=== PATIENT | female | born 1995 | race Caucasian/White ===

== ENCOUNTER → 2024-06-04 09:57 | Outpatient (REF) | payer OTHER, SELFPAY | LOC: RAD 09:57 | PROVIDERS: ATTENDING PHYSICIAN Nurse Practitioner; FAMILY PHYSICIAN Family Medicine | DX: N39.0 Urinary tract infection, site not specified (principal) | CPT/HCPCS: 76770; 76856 ==

== ENCOUNTER 2024-06-25 09:04 | Outpatient (RCR) | payer OTHER, SELFPAY | END 2024-06-25 23:59 | disposition home or self-care (01) | LOC: RPT 09:04 | PROVIDERS: ATTENDING PHYSICIAN Nurse Practitioner; FAMILY PHYSICIAN Family Medicine | DX: N30.10 Interstitial cystitis (chronic) without hematuria (principal); R35.0 Frequency of micturition; M62.89 Other specified disorders of muscle; N39.3 Stress incontinence (female) (male); R10.2 Pelvic and perineal pain; Z73.6 Limitation of activities due to disability | CPT/HCPCS: 97163; 97530 ==

== ENCOUNTER 2024-08-12 18:55 | Outpatient (RCR) | payer OTHER, SELFPAY | END 2024-08-12 23:59 | disposition home or self-care (01) | LOC: RPT 18:55 | PROVIDERS: ATTENDING PHYSICIAN Nurse Practitioner; FAMILY PHYSICIAN Family Medicine | DX: N30.10 Interstitial cystitis (chronic) without hematuria (principal); R35.0 Frequency of micturition; M62.89 Other specified disorders of muscle; N39.3 Stress incontinence (female) (male); R10.2 Pelvic and perineal pain; Z73.6 Limitation of activities due to disability | CPT/HCPCS: 97112; 97140; 97530 ==

== ENCOUNTER 2024-09-09 17:54 | Outpatient (RCR) | payer OTHER, SELFPAY | END 2024-09-09 23:59 | disposition home or self-care (01) | LOC: RPT 17:54 | PROVIDERS: ATTENDING PHYSICIAN Nurse Practitioner; FAMILY PHYSICIAN Family Medicine | DX: N30.10 Interstitial cystitis (chronic) without hematuria (principal); R35.0 Frequency of micturition; M62.89 Other specified disorders of muscle; N39.3 Stress incontinence (female) (male); R10.2 Pelvic and perineal pain; Z73.6 Limitation of activities due to disability | CPT/HCPCS: 97014; 97112; 97140; 97530 ==

== ENCOUNTER 2024-11-18 13:58 | Outpatient (RCR) | payer OTHER, SELFPAY | END 2024-11-18 23:59 | disposition home or self-care (01) | LOC: RPT 13:58 | PROVIDERS: ATTENDING PHYSICIAN Nurse Practitioner; FAMILY PHYSICIAN Family Medicine | DX: N30.10 Interstitial cystitis (chronic) without hematuria (principal); Z73.6 Limitation of activities due to disability; R35.0 Frequency of micturition; M62.89 Other specified disorders of muscle; N39.3 Stress incontinence (female) (male); R10.2 Pelvic and perineal pain | CPT/HCPCS: 97140; 97530 ==

== ENCOUNTER 2024-12-04 10:50 | Outpatient (RCR) | payer OTHER, SELFPAY | END 2024-12-04 23:59 | disposition home or self-care (01) | LOC: RPT 10:50 | PROVIDERS: ATTENDING PHYSICIAN Nurse Practitioner; FAMILY PHYSICIAN Family Medicine | DX: N30.10 Interstitial cystitis (chronic) without hematuria (principal); Z73.6 Limitation of activities due to disability; R35.0 Frequency of micturition; M62.89 Other specified disorders of muscle; N39.3 Stress incontinence (female) (male); R10.2 Pelvic and perineal pain | CPT/HCPCS: 97140; 97530 ==

== ENCOUNTER 2024-12-29 09:10 | Outpatient (RCR) | payer OTHER, SELFPAY | END 2024-12-29 23:59 | disposition home or self-care (01) | LOC: RPT 09:10 | PROVIDERS: ATTENDING PHYSICIAN Nurse Practitioner; FAMILY PHYSICIAN Family Medicine | DX: N30.10 Interstitial cystitis (chronic) without hematuria (principal); Z73.6 Limitation of activities due to disability; R35.0 Frequency of micturition; M62.89 Other specified disorders of muscle; N39.3 Stress incontinence (female) (male); R10.2 Pelvic and perineal pain | CPT/HCPCS: 97014; 97112; 97140; 97530 ==

== ENCOUNTER 2025-01-14 17:12 | Emergency (ER) | payer OTHER, SELFPAY ==
[2025-01-14 17:22] VITALS: BP 122/80
[2025-01-14 18:48] LABS: % Basophils 0.2 % (0-2); % Eosinophils 0.8 % (0-6); % Immature Granulocytes 0.1 % (0-0.5); % Lymphocytes 34.8 % (20.5-51.1); % Monocytes 5.6 % (1.7-9.3); % Neutrophils 58.5 % (42.2-75.2); Absolute Eosinophils 0.1 10^3/uL (0-0.7); Absolute Lymphocytes 3.1 10^3/uL (1.2-3.4); Absolute Monocytes 0.5 10^3/uL (0.1-0.6); Absolute Neutrophils 5.2 10^3/uL (1.4-6.5); Hematocrit 37.7 % (37.0-47.0); Hemoglobin 12.8 g/dL (12.0-16.0); Mean Corpuscular Hgb 31.5 pg (27.0-31.0); Mean Corpuscular Volume 92.9 fL (81.0-99.0); Nucleated Red Blood Cells % 0 %; Platelet Count 259 10^3/uL (130-400); Red Blood Cell Count 4.06 10^6/uL (4.20-5.40); Red Cell Dist. Width 11.9 % (11.5-14.5); White Blood Cell Count 8.9 10^3/uL (4.8-10.8)
[2025-01-14 19:09] LABS: ALT (SGPT) 20 U/L (0-35); AST (SGOT) 21 U/L (14-36); Albumin 4.8 g/dl (3.5-5.0); Alkaline Phosphatase 86 U/L (38-126); Blood Urea Nitrogen 14 mg/dl (7-17); Calcium 9.6 mg/dl (8.4-10.2); Carbon Dioxide 23 mmol/L (22-30); Chloride 105 mmol/L (98-107); Glucose 90 mg/dl (70-99); Potassium 3.8 mmol/L (3.5-5.1); Sodium 138 mmol/L (135-145); Total Bilirubin 0.3 mg/dl (0.2-1.3); Total Protein 7.7 g/dl (6.3-8.2); eGFR > 60.00
--- NOTE | 2025-01-14 20:34 | ED.GENMED ---
History of Present Illness
General
Chief Complaint: Problems
Source: patient
Exam Limitations: none
Time Seen by Provider: 01/14/25 17:32
Nursing documentation reviewed up to this point in time: agreed with
History of Present Illness
History of Present Illness:
The patient is a 29-year-old at an estimated 5 weeks gestation who presents the emergency department with abnormally rising hCG values. Patient states that her LMP was December 01 and she had her first abdomen positive test in early December.
She states that she started with some vaginal spotting this past Saturday which progressed on Saturday to heavier bleeding. She contacted her RECEIPT AND REPORT CLERK who eliana outpatient lab work. She states her hCG level on 01/11/2025 - 65, 01/12/2025 -101 and today,
01/14/2025 -114. She was sent to the emergency department for further evaluation and to rule out ectopic .
Patient states bleeding has stopped. She denies any lightheadedness, dizziness, shortness of breath, dysuria. She denies any lower abdominal or pelvic cramping. She does however note very mild lower back pain over the past few nights.
Patient was taking Clomid to help conceive.
She has no past history of abdominal surgeries however was recently diagnosed with PCOS
Review of Systems
Review of Systems
Allergies reviewed?: Yes
All Other Systems: ROS reviewed and negative except as documented in HPI and ROS
Phy Exam
Physical Exam
Physical Exam:
Vitals: Patient's vital signs are stable. Afebrile
General: Patient is well appearing, no acute distress
Skin: Warm and dry, no rashes or lesions
HEENT: Normocephalic, atraumatic. Protecting airway
Neck: Normal ROM
Cardiac: Regular rate and rhythm, no murmurs.
Pulm: Normal respiratory effort, no wheezes, rales, rhonchi heard on exam
.
Abdomen: Soft and nontender. No rebound tenderness or guarding. No palpable masses.
Extremities: No evidence of cyanosis or edema
Neuro: AAOx3. Grossly intact.
Psychiatric: Normal affect.
Course
Orders/Labs/Results
Orders:
Orders
01/14/25 17:41
US W Transvaginal Urgent
Reason For Exam: r/o ectopic
01/14/25 18:36
Type+Screen Urgent
Complete Blood Count/With Diff Urgent
Comprehensive Metabolic Panel Urgent
01/14/25 19:45
ABO2 Urgent
BBK Wristband Number:
Associate notified that ABO2 has been ordered: [id number]
Date: 01/14/25
Time: 18:49
Staff Interpreter ID: [id number]
01/14/25 20:33
Consult RECEIPT AND REPORT CLERK [RECEIPT AND REPORT CLERK CONSULT] Urgent
Consulting Provider: Eva Allan
Was physician already notified: Yes
Abnormal Lab Results
01/14/25
18:36
RBC 4.06 L 10^6/uL
(4.20-5.40)
MCH 31.5 H pg
(27.0-31.0)
01/14/25 18:36
01/14/25 18:36
Vital Signs
Initial and Last Documented VS:
Initial Vital Signs
Temp Pulse Resp BP Pulse Ox
98.5 F 79 16 122/80 98
01/14/25 17:22 01/14/25 17:22 01/14/25 17:22 01/14/25 17:22 01/14/25 17:22
Last Documented Vital Signs
Temp Pulse Resp BP Pulse Ox
98.5 F 79 16 122/80 98
01/14/25 17:22 01/14/25 17:22 01/14/25 17:22 01/14/25 17:22 01/14/25 20:34
Information
Weeks gestation: Weeks: (Approximately 5)
Location: Location: (Unknown)
MDM/Problems Addressed
Differential Diagnosis Includes:
Not limited to: , missed , ectopic , molar , subchronic hemorrhage, early , etc.
MDM/Problems Addressed:
29-year-old at an estimated 5 weeks gestation presents with history of recent vaginal spotting as well as abnormally rising hCG levels at home. Bleeding has since stopped and she denies any associated dizziness, shortness of breath, or
abdominal pain. hCG levels are as followed: 01/11/25, 01/12/25, 01/14/25- 114. Patient hemodynamically stable on arrival. Physical exam without acute abnormalities. Lab work obtained in the ED without clinically significant abnormalities.
Hemoglobin normal. Patient is blood type O-. First trimester ultrasound ultimately reveals a of uncertain location�there was a possible very small sac noted within the endometrium although no evidence of yolk sac or pole.
Differential remains as either a early intrauterine , missed , or possibly ectopic . Will touch base with RECEIPT AND REPORT CLERK.
7:36 PM: Consult placed to RECEIPT AND REPORT CLERK. Disposition pending.
9 PM: RECEIPT AND REPORT CLERK down to evaluate patient in ED. Ultimately�patient is presenting with a of an unknown location. After lengthy discussion with patient regarding options including methotrexate versus further hCG monitoring patient opts for
continued monitoring of hCG. Patient will return on Saturday for repeat hCG level. Very strict return precautions discussed with patient including vaginal bleeding, lightheadedness/syncope, pelvic pain, etc. Patient is blood type O-. Discussed
with RECEIPT AND REPORT CLERK and given patient is only 5 weeks gestation and not bleeding�RhoGAM not indicated. Patient will be discharged home with continued monitoring outpatient.
Chronic conditions affecting care:
N/A
Acute Exacerbation and/or Progression of Chronic Illness:
N/A
*Radiology
Radiology exam reviewed: radiology read reviewed
*Pulse Oximetry
SaO2: 98
Oxygen Mode of Delivery: Room air
Patient hypoxic: no
*EKG
Interpreted by ED Provider?: NA
*Lithograph Press Feeder Interpretation
Rate: Lithograph Press Feeder- N/A
*Critical Care Note
Total Time (30-74mins, 75-104mins- exclusive of procedures): Not Applicable
Patient Management
Discussion with other providers: Independent Living Specialist (Case discussed with RECEIPT AND REPORT CLERK)
ED Attending Note
-
Portions of this chart may have been created with voice recognition software.� Occasional wrong word or��sound alike� substitutions may have occurred due to the inherent limitations of voice recognition software.
Discharge Plan
Departure
Referrals:
Glendy Chu MD [Family Provider, [facility]]
Interventions
Interventions:
*Risk Screen - Suicide Last Done: 01/14/25 17:22
*General Assessment Last Done: 01/14/25 17:22
*Neglect/Abuse Screening Last Done: 01/14/25 17:22
ED-Female Genitourinary Assessment Last Done: 01/14/25 18:28
Discharge Date and Time
Print Language: IRISH
--- NOTE | 2025-01-14 23:55 | CON.MD ---
Consultation - Medical
-
29-year-old G 1P0 female with LMP approximately 5-1/2 weeks ago and positive test presented to the emergency room at the request of Dr. Hernandez. Ruth has episode of bleeding like a period for 3 days over the weekend. She has a positive
test. Denies any abdominal or pelvic pain.
She had an outpatient beta-hCG quant 01/11/2025 at [facility] measuring 65. Repeat hCG 01/12/2025 at [facility] was 101 (note this was only 1 day apart). Had beta-hCG at [facility] 01/14/2025 measuring 114.
She was asked to go to the emergency room for further evaluation due to abnormal rise of her hCG.
PMH: PCOS. Conceived on Clomid. This is first month she tried Clomid. Has been trying to conceive since March 2024.
PSH: Negative
NKDA
Meds: vitamin
Social history: negative tobacco, alcohol, recreational drug use
Family history: Noncontributory
Review of systems: Does not add
Physical exam: Vital signs stable afebrile
BP 122/80 pulse 78 9 temperature 98.5
General Appearance: Pleasant female, no acute distress. Accompanied by her .
Heart: Regular rate
Lungs: No labored breathing
Abdomen: Soft ND NT, no guarding rebound or rigidity.
Pelvic exam deferred
Extremities: No calf pain or tenderness
hCG 01/11-65
hCG 01/12 102
hCG 01/14 114
Pelvic TVUS demonstrated tiny hypoechoic/cystic area within the endometrium, possibly an early gestational sac. No yolk sac or pole identified at this time. Mean diameter approximately 5 weeks 1 day gestation. Right and left ovaries were
measured normal. No definitive adnexal mass noted.
```````````````````````````````~~~~~~~~Impression:
1. Threatened AB-had abnormal bleeding for 3 days over the weekend which has since resolved.
2. unknown location. Explained definition of unknown location. Beta-hCG is below discriminatory zone and therefore may not definitively see gestational sac or of the .
-Transvaginal ultrasound demonstrates possible early gestational sac. This also could represent fluid collection or pseudosac which can be associated with ectopic .
- She was counseled about possibility of ectopic until intrauterine can be definitively diagnosed.
-She was counseled that her labs show abnormal rise of hCG. It should be noted rise from 65-102 was within 1 day. Minimal increase from 102-114. It should be noted these were performed at separate labs and may not be the same assay.
Management options were reviewed:
1. Expectant management. Since she is asymptomatic she could return in 2 days for repeat beta hCG quant. She was counseled if she opts for this management, she would need to return immediately to the emergency room if she had any dizziness,
lightheadedness, near syncopal or syncopal episodes, severe abdominal pain or heavy bleeding. I discussed the risks associated with ectopic including tubal rupture. Life-threatening emergency hemorrhage, possible need for blood
transfusion, possible emergency surgery. If chooses expectant management, will need to repeat beta-hCG quant in 2 days. Management thereafter would include methotrexate if her levels do not rise appropriately or plateau. If hCG drops
significantly, serially BGs can be monitored.
2. Alternative option is methotrexate today. The abnormal rise in hCG suggest this is not a normal . I discussed benefits risks indications for methotrexate. She was counseled that if methotrexate is given she for hCG to become negative
and wait 3 months after prior to conceiving due to potential risks to .
She and her had opportunity to consider these options. She prefers to have a repeat hCG on Saturday one more time for peace of mind prior to receiving the methotrexate. She agrees to come to the emergency room immediately if she develops
any significant abdominal pain, dizziness, lightheadedness, syncopal or near syncopal episodes. She was counseled about risk for tubal rupture and that this is a life-threatening emergency. She was counseled to abstain from placing anything in
vagina including abstaining from any intercourse until location of is identified or appropriate treatment has been undertaken.
She and her have been counseled that given the abnormal rise of hCG this is not likely a normal even if it is located intrauterine. She was given order slip to repeat her beta-hCG quant on Saturday. She was instructed to call the
answering service on Saturday to have on-call doctor paged approximately an hour after she has her blood drawl. Dr. Nova will be on-call this weekend and I will sign this out to her.
They had opportunity to have their questions answered and these were answered to their satisfaction. They are aware of the recommended close follow-up until course of can absolutely be determined.
TIme [id number] counseling, review of records, documentation/coordination of care on the day of visit 45 minutes.
Consultation
-
Date/Time Consultation Requested: 01/14/2025 at 7:36 PM
Date/Time Consultation Performed: 01/14/2025 approximately 9 PM
Requesting Provider: Emergency room Sarah Spencer PA-C
Performing Provider: Eva Allan DO
Reason for Consultation: Abnormal rising hCG
== END 2025-01-14 21:55 | disposition home or self-care (01) ==
LOC: EMR 17:12
PROVIDERS: Physician Assistant; CONSULT PHYSICIAN Obstetrics & Gynecology; EMERGENCY PHYSICIAN Student in an Organized Health Care Education/Training Program; FAMILY PHYSICIAN Family Medicine
DX: O36.80X0 Pregnancy with inconclusive fetal viability, not applicable or unspecified (principal); Z3A.01 Less than 8 weeks gestation of pregnancy
CPT/HCPCS: 99284; 36415; 76801; 76817; 80053; 84702; 85025; 86850; 86900; 86901

== ENCOUNTER → 2025-01-16 07:19 | Outpatient (REF) | payer OTHER, SELFPAY ==
[2025-01-16 09:02] LABS: Beta HCG Quantitative 51.76 mIU/ml
== END ==
LOC: REG 07:19
PROVIDERS: ATTENDING PHYSICIAN Obstetrics & Gynecology; FAMILY PHYSICIAN Family Medicine
DX: O00.90 Unspecified ectopic pregnancy without intrauterine pregnancy (principal)
CPT/HCPCS: 84702

== ENCOUNTER → 2025-01-25 14:42 | Outpatient (REF) | payer OTHER, SELFPAY ==
[2025-01-25 15:38] LABS: Beta HCG Quantitative 32.24 mIU/ml
== END ==
LOC: REG 14:42
PROVIDERS: ATTENDING PHYSICIAN Obstetrics & Gynecology; FAMILY PHYSICIAN Family Medicine
DX: Z09 Encounter for follow-up examination after completed treatment for conditions other than malignant neoplasm (principal); O03.9 Complete or unspecified spontaneous abortion without complication
CPT/HCPCS: 36415; 84702

== ENCOUNTER → 2025-02-01 15:30 | Outpatient (REF) | payer OTHER, SELFPAY ==
[2025-02-01 16:30] LABS: Beta HCG Quantitative 21.18 mIU/ml
== END ==
LOC: REG 15:30
PROVIDERS: ATTENDING PHYSICIAN Student in an Organized Health Care Education/Training Program; FAMILY PHYSICIAN Family Medicine
DX: O03.9 Complete or unspecified spontaneous abortion without complication (principal)
CPT/HCPCS: 36415; 84702

== ENCOUNTER → 2025-02-08 15:24 | Outpatient (REF) | payer OTHER, SELFPAY ==
[2025-02-08 16:13] LABS: Beta HCG Quantitative < 2.39 mIU/ml
== END ==
LOC: REG 15:24
PROVIDERS: ATTENDING PHYSICIAN Student in an Organized Health Care Education/Training Program; FAMILY PHYSICIAN Family Medicine
DX: O03.9 Complete or unspecified spontaneous abortion without complication (principal)
CPT/HCPCS: 36415; 84702